=== PATIENT | male | born 1990 | race Caucasian/White ===

== ENCOUNTER 2018-01-10 21:42 | Emergency (ER) | payer OTHER ==
[2018-01-10 21:47] VITALS: BP 148/77; PULSE 92; RESP 20; TEMP 99.5
--- NOTE | 2018-01-10 21:54 | ED ---
ENT HPI - General Chief complaint: Dental/Oral Stated complaint: Dental pain Time Seen by Provider: 01/10/18 21:49 Source: patient, family, RN notes reviewed Mode of arrival: ambulatory Limitations: no limitations - History of Present Illness Initial comments: 27-year-old male presents emergency Department chief complaint of dental pain. Patient states she's had on and off issues with dental pain but states this pain is not alleviating. Patient states that it's in his left lower aspect. He does noted dental fracture. Patient denies any known fever, chills, difficulty swallowing. Patient states that he is to call his dentist on Friday. Patient's been trying ibuprofen 800 with no relief of symptoms. - Related Data Previous Rx's Medication Instructions Recorded Hydrocodone/Acetaminophen [[place] 1 tab PO Q6HR PRN #15 tab 01/10/18 5-325] Penicillin V Potassium [Pen Vee K] 500 mg PO QID #40 tablet 01/10/18 Allergies Allergy/AdvReac Type Severity Reaction Status Date / Time No Known Allergies Allergy Verified 01/10/18 21:47 Review of Systems ROS Statement: Those systems with pertinent positive or pertinent negative responses have been documented in the HPI. ROS Other: All systems not noted in ROS Statement are negative. Past Medical History Additional Past Medical History / Comment(s): cerbral palsy History of Any Multi-Drug Resistant Organisms: None Reported Past Surgical History: No Surgical Hx Reported Past Psychological History: No Psychological Hx Reported Smoking Status: Current every day smoker Past Alcohol Use History: None Reported Past Drug Use History: None Reported General Exam Limitations: no limitations General appearance: alert, in no apparent distress Head exam: Present: atraumatic, normocephalic, normal inspection Eye exam: Present: normal appearance, PERRL, EOMI. Absent: scleral icterus, conjunctival injection, periorbital swelling ENT exam: Present: mucous membranes moist, TM's normal bilaterally, normal external ear exam. Absent: normal oropharynx (Dental fracture #17) Neck exam: Present: normal inspection, full ROM. Absent: tenderness, meningismus, lymphadenopathy Respiratory exam: Present: normal lung sounds bilaterally. Absent: respiratory distress, wheezes, rales, rhonchi, stridor Cardiovascular Exam: Present: regular rate, normal rhythm, normal heart sounds. Absent: systolic murmur, diastolic murmur, rubs, gallop, clicks Neurological exam: Present: alert, oriented X3, CN II-XII intact Skin exam: Present: warm, dry, intact, normal color. Absent: rash Course Vital Signs 01/10/18 21:43 Temperature 99.5 F Pulse Rate 92 Respiratory 20 Rate Blood Pressure 148/77 O2 Sat by Pulse 100 Oximetry Medical Decision Making - Medical Decision Making 27-year-old male presented for dental pain. Patient is dental fracture no drainable abscess. Patient was started on antibiotics, pain medication. Patient advised follow-up with his dentist return for any worsening symptoms. Disposition Clinical Impression: Fracture of tooth, Pain, dental Disposition: HOME SELF-CARE Condition: Stable Instructions: Toothache (ED) Additional Instructions: Please return to the Emergency Department if symptoms worsen or any other concerns. Prescriptions: Hydrocodone/Acetaminophen [[place] 5-325] 1 tab PO Q6HR PRN #15 tab PRN Reason: Pain Penicillin V Potassium [Pen Vee K] 500 mg PO QID #40 tablet Referrals: None,Stated [Primary Care Provider] - 1-2 days Time of Disposition: 21:54
== END 2018-01-10 22:13 | disposition home or self-care (01) ==
LOC: EC 21:42
DX: S02.5XXA Fracture of tooth (traumatic), initial encounter for closed fracture (principal); F17.200 Nicotine dependence, unspecified, uncomplicated; X58.XXXA Exposure to other specified factors, initial encounter
CPT/HCPCS: 99282

== ENCOUNTER → 2019-01-05 | Outpatient (CLI) | payer OTHER ==
--- NOTE | 2019-01-05 15:57 | XR ---
Lumbosacral spine HISTORY: Low back pain 5 views of the lumbosacral spine and 6 images No comparisons Lumbar vertebral bodies show preserved alignment and bone mineralization. No evident spondylolysis. T here is some loss of height centrally at multiple vertebral bodies at the superior inferior endplates . IMPRESSION: Consider Scheuermann's disease
== END | disposition home or self-care (01) ==
LOC: RADXRMAIN 14:33
PROVIDERS: ATTEND Family Medicine
DX: M54.5 Low back pain (principal)
CPT/HCPCS: 72110

== ENCOUNTER 2021-03-13 01:03 | Emergency (ER) | payer OTHER ==
[2021-03-13 01:16] VITALS: BP 149/82; PULSE 90; RESP 18; TEMP 97.6
[2021-03-13] MEDS ORDERED: AMOXIC-POT CLAV 875MG STARTER PACK 2 TAB BTL PO STA (02:01)
[2021-03-13] MEDS ORDERED: KETOROLAC 15 MG/ML 1 ML VIAL IM STA (02:01)
[2021-03-13] MEDS ORDERED: ACET/COD 300 MG/30 MG STARTER PACK 6 TAB BTL PO STA (02:01)
--- NOTE | 2021-03-13 02:03 | ED ---
General Adult HPI - General Chief complaint: Dental/Oral Stated complaint: Dental Pain Time Seen by Provider: 03/13/21 01:18 Source: patient, family Mode of arrival: ambulatory Limitations: no limitations - History of Present Illness Initial comments: 30-year-old male patient presents to the emergency department today for evaluation of dental pain. Patient states he isn't having pain in the left upper dentition for the last 2-3 days. States he has a broken tooth. Believes it may be coming infected. States it feels better with ice water over it. Denies taking any medication for pain relief. He denies any fever or chills. Denies facial swelling. Denies nausea or vomiting. Has not yet made an appointment with a dentist. - Related Data Previous Rx's Medication Instructions Recorded Amoxicillin 500 mg PO Q8H 10 Days capsule 07/21/18 Ibuprofen [Motrin] 600 mg PO Q6HR PRN #20 tab 07/21/18 Amoxic-Pot Clav 875-125Mg 1 tab PO Q12HR #20 tablet 03/13/21 [Augmentin 875-125] Ibuprofen [Motrin] 600 mg PO Q8HR PRN #30 tab 03/13/21 Allergies Allergy/AdvReac Type Severity Reaction Status Date / Time No Known Allergies Allergy Verified 03/13/21 01:15 Review of Systems ROS Statement: Those systems with pertinent positive or pertinent negative responses have been documented in the HPI. ROS Other: All systems not noted in ROS Statement are negative. Past Medical History Additional Past Medical History / Comment(s): cerbral palsy History of Any Multi-Drug Resistant Organisms: None Reported Past Surgical History: No Surgical Hx Reported Past Psychological History: No Psychological Hx Reported Smoking Status: Current every day smoker Past Alcohol Use History: Rare Past Drug Use History: None Reported General Exam Limitations: no limitations General appearance: alert, in no apparent distress Eye exam: Present: PERRL, EOMI, other (There is broken tooth #13 and #14. No surrounding gingival erythema or hyperplasia. No evidence of drainable abscess.). Absent: scleral icterus, conjunctival injection, periorbital swelling Neck exam: Present: normal inspection. Absent: tenderness, meningismus, lymphadenopathy Respiratory exam: Present: normal lung sounds bilaterally. Absent: respiratory distress, wheezes, rales, rhonchi, stridor Cardiovascular Exam: Present: regular rate, normal rhythm, normal heart sounds. Absent: systolic murmur, diastolic murmur, rubs, gallop, clicks Neurological exam: Present: alert, oriented X3, CN II-XII intact Psychiatric exam: Present: normal affect, normal mood Skin exam: Present: warm, dry, intact, normal color. Absent: rash Course Vital Signs 03/13/21 03/13/21 01:11 02:31 Temperature 97.6 F 97.6 F Pulse Rate 90 90 Respiratory 18 18 Rate Blood Pressure 149/82 149/82 O2 Sat by Pulse 98 98 Oximetry Medical Decision Making - Medical Decision Making 30 year-old male patient in for evaluation of dental pain. Physical exam showed broken teeth #13 and #14. No evidence of drainable abscess. Started on Augmentin. Given pain medication. Discharge follow-up with dentistry as soon as possible. He is given recommendations. Return parameters were discussed in detail. He verbalizes understanding and agrees with this plan. My attending is Dr. Figueroa. Disposition Clinical Impression: Pain, dental, Fractured tooth Disposition: HOME SELF-CARE Condition: Good Instructions (If sedation given, give patient instructions): Toothache (ED) Additional Instructions: Take medications as directed. Follow-up with the primary care physician for recheck in 1-2 days. Follow-up with dentist as soon as possible. Return for any new, worsening, or concerning symptoms. Please follow up with the [facility] dental clinic. [facility] [place] [address]. Phone number for new patients or [phone] for existing patients. [facility]. Must pay for x-rays then services are free. Call for an appoitnment. Prescriptions: Amoxic-Pot Clav 875-125Mg [[place] 875-125] 1 tab PO Q12HR #20 tablet Ibuprofen [Motrin] 600 mg PO Q8HR PRN #30 tab PRN Reason: Pain Is patient prescribed a controlled substance at d/c from ED?: No Referrals: None,Stated [Primary Care Provider] - 1-2 days Time of Disposition: 02:02
== END 2021-03-13 02:32 | disposition home or self-care (01) ==
LOC: EC 01:03
DX: K03.81 Cracked tooth (principal); F17.200 Nicotine dependence, unspecified, uncomplicated
CPT/HCPCS: 99282; 96372; J1885

== ENCOUNTER 2021-10-28 15:35 | Emergency (ER) | payer OTHER ==
[2021-10-28 16:28] VITALS: RESP 18
[2021-10-28] MEDS ORDERED: ACET/COD 300 MG/30 MG STARTER PACK 6 TAB BTL PO STA (17:13)
[2021-10-28] MEDS ORDERED: AMOXICILLIN 500MG STARTER PACK 3 CAP BTL PO STA (17:13)
[2021-10-28] MEDS ORDERED: KETOROLAC 15 MG/ML 1 ML VIAL IM STA (17:14)
--- NOTE | 2021-10-28 17:17 | ED ---
General Adult HPI - General Chief complaint: ENT Stated complaint: Ear Pain Time Seen by Provider: 10/28/21 16:59 Source: patient Mode of arrival: ambulatory Limitations: no limitations - History of Present Illness Initial comments: 31 year-old male patient presents for bilateral ear pain worse on the right. States that he had covid two weeks ago and has been congested. Pain started about a week ago and has been worsening. States the pain is now radiating to his jaw. States that motrin is no longer working for the pain. He denies drainage from the ear. Denies any recent swimming or getting water in his ear. States he does have history of ear infections. Denies fever or chills. Denies any dental pain or facial swelling. Denies history of diabetes. - Related Data Previous Rx's Medication Instructions Recorded Amoxicillin 500 mg PO Q8H 10 Days capsule 07/21/18 Ibuprofen [Motrin] 600 mg PO Q6HR PRN #20 tab 07/21/18 Amoxic-Pot Clav 875-125Mg 1 tab PO Q12HR #20 tablet 03/13/21 [Augmentin 875-125] Ibuprofen [Motrin] 600 mg PO Q8HR PRN #30 tab 03/13/21 Amoxicillin 875 mg PO Q12HR #20 tablet 10/28/21 Allergies Allergy/AdvReac Type Severity Reaction Status Date / Time No Known Allergies Allergy Verified 10/28/21 16:28 Review of Systems ROS Statement: Those systems with pertinent positive or pertinent negative responses have been documented in the HPI. ROS Other: All systems not noted in ROS Statement are negative. Past Medical History Additional Past Medical History / Comment(s): cerbral palsy History of Any Multi-Drug Resistant Organisms: None Reported Past Surgical History: No Surgical Hx Reported Past Psychological History: No Psychological Hx Reported Smoking Status: Current every day smoker Past Alcohol Use History: Rare Past Drug Use History: None Reported General Exam Limitations: no limitations General appearance: alert, in no apparent distress, other (This is a well- developed, well-nourished adult male in no acute distress.) ENT exam: Present: normal oropharynx, mucous membranes moist. Absent: TM's normal bilaterally (Right tympanic membrane is bulging, erythematous, fluid level noted) Respiratory exam: Present: normal lung sounds bilaterally. Absent: respiratory distress, wheezes, rales, rhonchi, stridor Cardiovascular Exam: Present: regular rate, normal rhythm, normal heart sounds. Absent: systolic murmur, diastolic murmur, rubs, gallop, clicks Neurological exam: Present: alert, oriented X3, CN II-XII intact Psychiatric exam: Present: normal affect, normal mood Skin exam: Present: warm, dry, intact, normal color. Absent: rash Course Vital Signs 10/28/21 16:23 Temperature 97.9 F Pulse Rate 83 Respiratory 18 Rate Blood Pressure 118/77 O2 Sat by Pulse 98 Oximetry Medical Decision Making - Medical Decision Making 31-year-old male patient presents for evaluation of right ear pain started a week ago. Physical examination did reveal a right bulging, erythematous tympanic membrane with a fluid level. No canal erythema or swelling. He is given amoxicillin and Toradol injection. He'll be discharged to follow up with the primary care physician for recheck in 1-2 days. Return parameters were discussed in detail. He verbalizes understanding and agrees with this plan. My attending is Dr. Shepherd. Disposition Clinical Impression: Right otitis media Disposition: HOME SELF-CARE Condition: Good Instructions (If sedation given, give patient instructions): Ear Infection (ED) Additional Instructions: Take medications as directed. Complete antibiotic prescription in full. Take over the counter nasal decongestants. Follow-up with your primary care physician for recheck in 1-2 days. Return to the emergency department for any new, worsening, or concerning symptoms. Prescriptions: Amoxicillin 875 mg PO Q12HR #20 tablet Is patient prescribed a controlled substance at d/c from ED?: No Referrals: None,Stated [Primary Care Provider] - 1-2 days Time of Disposition: 17:17
[2021-10-28 18:43] VITALS: BP 120/75; PULSE 82; TEMP 98
== END 2021-10-28 18:38 | disposition home or self-care (01) ==
LOC: EC 15:35
DX: H66.91 Otitis media, unspecified, right ear (principal); F17.200 Nicotine dependence, unspecified, uncomplicated
CPT/HCPCS: 99282; 96372; J1885

== ENCOUNTER 2021-11-21 09:46 | Emergency (ER) | payer OTHER ==
[2021-11-21 10:00] VITALS: BP 125/79; PULSE 74; RESP 18; TEMP 97.7
[2021-11-21] MEDS ORDERED: ACET/COD 300 MG/30 MG STARTER PACK 6 TAB BTL PO STA (10:41)
--- NOTE | 2021-11-21 10:46 | ED ---
ENT HPI - General Chief complaint: ENT Stated complaint: Lt Ear Pain Time Seen by Provider: 11/21/21 10:08 Source: patient, family, RN notes reviewed Mode of arrival: ambulatory Limitations: no limitations - History of Present Illness Initial comments: 31-year-old male presents emergency Department with chief complaint of left ear pain, left upper dental pain. Patient states started last couple days. Patient states she has very poor dentition. He is unsure if the ear pains from his tooth. He states one month. Right ear infection. No nasal congestion no other complaints. - Related Data Previous Rx's Medication Instructions Recorded Amoxicillin 500 mg PO Q8H 10 Days capsule 07/21/18 Ibuprofen [Motrin] 600 mg PO Q6HR PRN #20 tab 07/21/18 Amoxic-Pot Clav 875-125Mg 1 tab PO Q12HR #20 tablet 03/13/21 [Augmentin 875-125] Ibuprofen [Motrin] 600 mg PO Q8HR PRN #30 tab 03/13/21 Amoxicillin 875 mg PO Q12HR #20 tablet 10/28/21 Ibuprofen [Motrin] 600 mg PO Q8HR PRN #20 tab 11/21/21 Penicillin V Potassium [Pen Vee K] 500 mg PO QID #40 tablet 11/21/21 Allergies Allergy/AdvReac Type Severity Reaction Status Date / Time No Known Allergies Allergy Verified 11/21/21 10:00 Review of Systems ROS Statement: Those systems with pertinent positive or pertinent negative responses have been documented in the HPI. ROS Other: All systems not noted in ROS Statement are negative. Past Medical History Additional Past Medical History / Comment(s): cerbral palsy History of Any Multi-Drug Resistant Organisms: None Reported Past Surgical History: No Surgical Hx Reported Past Psychological History: No Psychological Hx Reported Smoking Status: Current every day smoker Past Alcohol Use History: Rare Past Drug Use History: None Reported General Exam Limitations: no limitations General appearance: alert, in no apparent distress Head exam: Present: atraumatic, normocephalic, normal inspection Eye exam: Present: normal appearance, PERRL, EOMI. Absent: scleral icterus, conjunctival injection, periorbital swelling ENT exam: Present: mucous membranes moist, TM's normal bilaterally, normal external ear exam. Absent: normal oropharynx (Poor dentition, left upper dental infection) Neck exam: Present: normal inspection, full ROM. Absent: tenderness, meningismus, lymphadenopathy Respiratory exam: Present: normal lung sounds bilaterally. Absent: respiratory distress, wheezes, rales, rhonchi, stridor Cardiovascular Exam: Present: regular rate, normal rhythm, normal heart sounds. Absent: systolic murmur, diastolic murmur, rubs, gallop, clicks Course Vital Signs 11/21/21 09:56 Temperature 97.7 F Pulse Rate 74 Respiratory 18 Rate Blood Pressure 125/79 O2 Sat by Pulse 97 Oximetry Medical Decision Making - Medical Decision Making Patient we treated for dental infection. Patient was started on oral antibiotics. Patient strict return for any worsening changes symptoms. Disposition Clinical Impression: Otalgia, left ear, Dental infection Disposition: HOME SELF-CARE Condition: Stable Instructions (If sedation given, give patient instructions): Earache (ED), Toothache (ED) Additional Instructions: Please return to the Emergency Department if symptoms worsen or any other concerns. Prescriptions: Ibuprofen [Motrin] 600 mg PO Q8HR PRN #20 tab PRN Reason: Pain Penicillin V Potassium [Pen Vee K] 500 mg PO QID #40 tablet Is patient prescribed a controlled substance at d/c from ED?: No Referrals: None,Stated [Primary Care Provider] - 1-2 days Time of Disposition: 10:46
== END 2021-11-21 11:18 | disposition home or self-care (01) ==
LOC: EC 09:46
DX: H92.02 Otalgia, left ear (principal); K04.7 Periapical abscess without sinus; G80.9 Cerebral palsy, unspecified; F17.200 Nicotine dependence, unspecified, uncomplicated; Z72.89 Other problems related to lifestyle
CPT/HCPCS: 99282

== ENCOUNTER 2021-12-15 00:39 | Emergency (ER) | payer OTHER ==
[2021-12-15 00:52] VITALS: BP 175/90; PULSE 100; RESP 19; TEMP 98.9
[2021-12-15] MEDS ORDERED: KETOROLAC 15 MG/ML 1 ML VIAL IM STA (01:19)
--- NOTE | 2021-12-15 01:21 | ED ---
ENT HPI - General Chief complaint: Dental/Oral Stated complaint: Tooth pain Time Seen by Provider: 12/15/21 00:52 Source: patient, RN notes reviewed Mode of arrival: ambulatory - History of Present Illness Initial comments: This is a pleasant 31-year-old male presents immersed spine for recurrent dental pain and dental infections. Patient states for the past few days he started getting a aching tooth to his lower left molar area. Patient has been seen here frequently over the past 2 months. He states he previously had antibiotics and ended up getting a dental extraction at a dental clinic [facility]. Patient is a cigarette smoker. He denies any other symptomology. He has had no fever or chills. No difficulty swallowing. Noted the patient has not vaccinated against COVID-19. He has no immunosuppression. No headache, no fever or chills, no changes in vision or hearing, no sore throat or difficulty with speech, no neck pain, no chest pain or shortness of breath, no abdominal pain, no nausea or vomiting, no changes in urination or bowel movements, no numbness or tingling, no extremity pain, no skin rashes or lesions. MD complaint: tooth pain - Related Data Previous Rx's Medication Instructions Recorded Amoxicillin 500 mg PO Q8H 10 Days capsule 07/21/18 Ibuprofen [Motrin] 600 mg PO Q6HR PRN #20 tab 07/21/18 Amoxic-Pot Clav 875-125Mg 1 tab PO Q12HR #20 tablet 03/13/21 [Augmentin 875-125] Ibuprofen [Motrin] 600 mg PO Q8HR PRN #30 tab 03/13/21 Amoxicillin 875 mg PO Q12HR #20 tablet 10/28/21 Ibuprofen [Motrin] 600 mg PO Q8HR PRN #20 tab 11/21/21 Penicillin V Potassium [Pen Vee K] 500 mg PO QID #40 tablet 11/21/21 Penicillin V Potassium [Pen Vee K] 500 mg PO QID #40 tablet 12/15/21 Allergies Allergy/AdvReac Type Severity Reaction Status Date / Time No Known Allergies Allergy Verified 12/15/21 00:52 Review of Systems ROS Statement: Those systems with pertinent positive or pertinent negative responses have been documented in the HPI. ROS Other: All systems not noted in ROS Statement are negative. Past Medical History Additional Past Medical History / Comment(s): cerbral palsy History of Any Multi-Drug Resistant Organisms: None Reported Past Surgical History: No Surgical Hx Reported Past Psychological History: No Psychological Hx Reported Smoking Status: Current every day smoker Past Alcohol Use History: Rare Past Drug Use History: None Reported General Exam General appearance: alert, in no apparent distress Head exam: Present: atraumatic, normocephalic, normal inspection Eye exam: Present: normal appearance, PERRL, EOMI. Absent: scleral icterus, conjunctival injection, periorbital swelling ENT exam: Present: mucous membranes moist, normal external ear exam. Absent: normal oropharynx, mucous membranes dry Expanded Ear exam: Present: normal external inspection Mouth exam: Present: normal external inspection. Absent: drooling, trismus, muffled voice, tongue normal, tongue elevation Teeth exam: Present: dental caries, dental tenderness # (Patient has a severely eroded dental carry to tooth #19, this does extend into the pulp. Patient has adjacent edema to the gingival area. No definitive abscess) Neck exam: Present: normal inspection. Absent: tenderness, meningismus, lymphadenopathy Respiratory exam: Present: normal lung sounds bilaterally. Absent: respiratory distress, wheezes, rales, rhonchi, stridor Cardiovascular Exam: Present: regular rate, normal rhythm, normal heart sounds. Absent: systolic murmur, diastolic murmur, rubs, gallop, clicks GI/Abdominal exam: Present: soft, normal bowel sounds. Absent: distended, tenderness, guarding, rebound, rigid Extremities exam: Present: normal inspection, full ROM, normal capillary refill. Absent: tenderness, pedal edema, joint swelling, calf tenderness Back exam: Present: normal inspection Neurological exam: Present: alert, oriented X3, CN II-XII intact Psychiatric exam: Present: normal affect, normal mood Skin exam: Present: warm, dry, intact, normal color. Absent: rash Course Vital Signs 12/15/21 00:49 Temperature 98.9 F Pulse Rate 100 Respiratory 19 Rate Blood Pressure 175/90 O2 Sat by Pulse 98 Oximetry Medical Decision Making - Medical Decision Making We'll treat the patient with antibiotics. Patient will need to follow-up with dentist. Told to call first thing Friday morning. Pen-Vee K 500 mg 4 times a day. Patient was given Toradol here. He has acetaminophen and ibuprofen at [facility]. Patient was counseled on smoking cessation for 3 minutes. Patient also advised to get a COVID-19 vaccination. Patient was told to return to the ER for any signs or symptoms worsen. Told to return immediately if any other problems arise. All questions answered. Treatment plan discussed. Patient in agreement Disposition Clinical Impression: Dental abscess, Dental caries Disposition: HOME SELF-CARE Condition: Stable Instructions (If sedation given, give patient instructions): Dental Abscess (ED), Toothache (ED) Additional Instructions: Follow-up with your dentist as directed. Take antibiotics as directed. Co ntinue acetaminophen and ibuprofen at home. Follow-up with your regular physician as directed. Return to the ER immediately if any symptoms worsen, new symptoms arise, or any other problems develop. Prescriptions: Penicillin V Potassium [Pen Vee K] 500 mg PO QID #40 tablet Is patient prescribed a controlled substance at d/c from ED?: No Referrals: Tello Gonzales [STAFF PHYSICIAN] - 12/20/21 Time of Disposition: 01:20
[2021-12-15] MEDS ORDERED: PENICILLIN V POTASSIUM 250 MG TAB PO ONE (01:30)
== END 2021-12-15 01:33 | disposition home or self-care (01) ==
LOC: EC 00:39
DX: K04.7 Periapical abscess without sinus (principal); K02.9 Dental caries, unspecified; F17.200 Nicotine dependence, unspecified, uncomplicated; Z79.1 Long term (current) use of non-steroidal anti-inflammatories (NSAID)
CPT/HCPCS: 99282; 96372; J1885

== ENCOUNTER 2022-05-20 03:24 | Emergency (ER) | payer OTHER ==
[2022-05-20 03:32] VITALS: BP 151/87; PULSE 85; RESP 16; TEMP 97.6
--- NOTE | 2022-05-20 03:46 | ED ---
ENT HPI - General Chief complaint: Dental/Oral Stated complaint: Dental Pain Time Seen by Provider: 05/20/22 03:32 Source: patient, RN notes reviewed, old records reviewed Mode of arrival: ambulatory Limitations: no limitations - History of Present Illness Initial comments: This is a 31-year-old male to the emergency department for evaluation patient co radha in for dental pain. He states he has consult with dentist for took out his tooth or part of it and his plans to see dentist CK. Worsening pain started yesterday. Increasing today. No other new complaints not on currently antibiotics MD complaint: tooth pain -: days(s) Location: tooth # Severity: severe Severity scale (1-10): 8 Quality: stabbing, aching Consistency: intermittent Improves with: none Worsens with: none Context-Epistaxis: history of similar Context- Dental: history of dental caries, poor dental care Associated Symptoms: toothache - Related Data Previous Rx's Medication Instructions Recorded Amoxicillin 500 mg PO Q8H 10 Days capsule 07/21/18 Ibuprofen [Motrin] 600 mg PO Q6HR PRN #20 tab 07/21/18 Amoxic-Pot Clav 875-125Mg 1 tab PO Q12HR #20 tablet 03/13/21 [Augmentin 875-125] Ibuprofen [Motrin] 600 mg PO Q8HR PRN #30 tab 03/13/21 Amoxicillin 875 mg PO Q12HR #20 tablet 10/28/21 Ibuprofen [Motrin] 600 mg PO Q8HR PRN #20 tab 11/21/21 Penicillin V Potassium [Pen Vee K] 500 mg PO QID #40 tablet 11/21/21 Penicillin V Potassium [Pen Vee K] 500 mg PO QID #40 tablet 12/15/21 Amoxic-Pot Clav 875-125Mg 1 tab PO Q12HR #20 tablet 05/20/22 [Augmentin 875-125] Allergies Allergy/AdvReac Type Severity Reaction Status Date / Time No Known Allergies Allergy Verified 05/20/22 03:29 Review of Systems ROS Statement: Those systems with pertinent positive or pertinent negative responses have been documented in the HPI. ROS Other: All systems not noted in ROS Statement are negative. Past Medical History Additional Past Medical History / Comment(s): cerbral palsy History of Any Multi-Drug Resistant Organisms: None Reported Past Surgical History: No Surgical Hx Reported Past Psychological History: No Psychological Hx Reported Smoking Status: Current every day smoker Past Alcohol Use History: Rare Past Drug Use History: None Reported General Exam Limitations: no limitations General appearance: alert, in no apparent distress Head exam: Present: atraumatic, normocephalic, normal inspection Eye exam: Present: normal appearance, PERRL, EOMI. Absent: scleral icterus, conjunctival injection, periorbital swelling ENT exam: Present: normal exam, mucous membranes moist Neck exam: Present: normal inspection. Absent: tenderness, meningismus, lymphadenopathy Respiratory exam: Present: normal lung sounds bilaterally. Absent: respiratory distress, wheezes, rales, rhonchi, stridor Cardiovascular Exam: Present: regular rate, normal rhythm, normal heart sounds. Absent: systolic murmur, diastolic murmur, rubs, gallop, clicks GI/Abdominal exam: Present: soft, normal bowel sounds. Absent: distended, tenderness, guarding, rebound, rigid Extremities exam: Present: normal inspection, full ROM, normal capillary refill. Absent: tenderness, pedal edema, joint swelling, calf tenderness Back exam: Present: normal inspection Neurological exam: Present: alert, oriented X3, CN II-XII intact Psychiatric exam: Present: normal affect, normal mood Skin exam: Present: warm, dry, intact, normal color. Absent: rash Course Vital Signs 05/20/22 03:29 Temperature 97.6 F Pulse Rate 85 Respiratory 16 Rate Blood Pressure 151/87 O2 Sat by Pulse 100 Oximetry - Reevaluation(s) Reevaluation #1: 05/20/22 Medical records reviewed Reevaluation #2: 05/20/22 Patient has pain control feels improved informed results and questions answered Medical Decision Making - Medical Decision Making 31 male to the emergency department for evaluation of dental pain. Patient has pain control here in the ER can be discharged home Disposition Clinical Impression: Toothache, Dental abscess Disposition: HOME SELF-CARE Condition: Good Instructions (If sedation given, give patient instructions): Dental Abscess (ED), Toothache (ED) Prescriptions: Amoxic-Pot Clav 875-125Mg [Augmentin 875-125] 1 tab PO Q12HR #20 tablet Is patient prescribed a controlled substance at d/c from ED?: No Referrals: None,Stated [Primary Care Provider] - 1-2 days Time of Disposition: 04:00
[2022-05-20] MEDS ORDERED: ACET/COD 300 MG/30 MG STARTER PACK 6 TAB BTL PO STA (03:47)
[2022-05-20] MEDS ORDERED: AMOXIC-POT CLAV 875-125MG 1 EACH TAB PO STA (03:47)
[2022-05-20] MEDS ORDERED: Acetaminophen-Codeine 300-30mg TAB PO STA (03:47)
[2022-05-20] MEDS ORDERED: AMOXIC-POT CLAV 875MG STARTER PACK 2 TAB BTL PO STA (03:47)
== END 2022-05-20 04:02 | disposition home or self-care (01) ==
LOC: EC 03:24
DX: K04.7 Periapical abscess without sinus (principal); F17.200 Nicotine dependence, unspecified, uncomplicated
CPT/HCPCS: 99282

== ENCOUNTER 2022-06-27 18:43 | Emergency (ER) | payer OTHER ==
[2022-06-27 18:56] VITALS: BP 141/92; PULSE 93; RESP 18; TEMP 98.5
[2022-06-27] MEDS ORDERED: PENICILLIN VK 500MG STARTER 4 TAB BTL PO STA (19:33)
--- NOTE | 2022-06-27 19:37 | ED ---
General Adult HPI - General Chief complaint: Dental/Oral Stated complaint: Tooth pain Time Seen by Provider: 06/27/22 19:05 Source: patient, RN notes reviewed Mode of arrival: ambulatory Limitations: no limitations - History of Present Illness Initial comments: Patient is a pleasant 31-year-old male presenting to the emergency Department with dental pain. Present over the past week. Patient does have history of similar previous problem. Patient did go to the dentist and they want to wait for swelling to go down prior to doing a procedure. No dyspnea. No difficulty tolerating oral intake. - Related Data Previous Rx's Medication Instructions Recorded Amoxicillin 500 mg PO Q8H 10 Days capsule 07/21/18 Ibuprofen [Motrin] 600 mg PO Q6HR PRN #20 tab 07/21/18 Amoxic-Pot Clav 875-125Mg 1 tab PO Q12HR #20 tablet 03/13/21 [Augmentin 875-125] Ibuprofen [Motrin] 600 mg PO Q8HR PRN #30 tab 03/13/21 Amoxicillin 875 mg PO Q12HR #20 tablet 10/28/21 Ibuprofen [Motrin] 600 mg PO Q8HR PRN #20 tab 11/21/21 Penicillin V Potassium [Pen Vee K] 500 mg PO QID #40 tablet 11/21/21 Penicillin V Potassium [Pen Vee K] 500 mg PO QID #40 tablet 12/15/21 Amoxic-Pot Clav 875-125Mg 1 tab PO Q12HR #20 tablet 05/20/22 [Augmentin 875-125] Penicillin V Potassium [Pen Vee K] 500 mg PO QID #40 tablet 06/27/22 Allergies Allergy/AdvReac Type Severity Reaction Status Date / Time No Known Allergies Allergy Verified 06/27/22 18:54 Review of Systems ROS Statement: Those systems with pertinent positive or pertinent negative responses have been documented in the HPI. ROS Other: All systems not noted in ROS Statement are negative. Constitutional: Denies: fever Eyes: Denies: eye pain ENT: Reports: dental pain. Denies: ear pain Respiratory: Denies: cough, dyspnea Cardiovascular: Denies: chest pain Past Medical History Additional Past Medical History / Comment(s): cerbral palsy History of Any Multi-Drug Resistant Organisms: None Reported Past Surgical History: No Surgical Hx Reported Past Psychological History: No Psychological Hx Reported Smoking Status: Current every day smoker Past Alcohol Use History: Rare Past Drug Use History: None Reported General Exam Limitations: no limitations General appearance: alert, in no apparent distress Head exam: Present: normocephalic Eye exam: Present: normal appearance ENT exam: Present: other (Right lower first molar and rare premolar with significant decay and tenderness. No significant swelling or erythema.) Neck exam: Present: normal inspection Respiratory exam: Present: normal lung sounds bilaterally Cardiovascular Exam: Present: regular rate, normal rhythm GI/Abdominal exam: Present: soft. Absent: tenderness Neurological exam: Present: alert Psychiatric exam: Present: normal affect, normal mood Skin exam: Present: normal color Course Vital Signs 06/27/22 18:54 Temperature 98.5 F Pulse Rate 93 Respiratory 18 Rate Blood Pressure 141/92 O2 Sat by Pulse 99 Oximetry Disposition Clinical Impression: Toothache Disposition: HOME SELF-CARE Condition: Stable Instructions (If sedation given, give patient instructions): Toothache (ED) Additional Instructions: Prescription for anabiotic has been sent to pharmacy. Please do follow-up with your dentist in the next day or 2 for recheck. Please also follow-up primary care physician. Return for increased pain, swelling, fever, difficulty breathing, difficulty tolerating oral intake of food or water, worsening symptoms or other concerns. Prescriptions: Penicillin V Potassium [Pen Vee K] 500 mg PO QID #40 tablet Is patient prescribed a controlled substance at d/c from ED?: No Referrals: None,Stated [Primary Care Provider] - 1-2 days Time of Disposition: 19:37
== END 2022-06-27 19:57 | disposition home or self-care (01) ==
LOC: EC 18:43
DX: K08.89 Other specified disorders of teeth and supporting structures (principal); F17.200 Nicotine dependence, unspecified, uncomplicated
CPT/HCPCS: 99282